=== PATIENT | female | born 1955 | race Caucasian/White ===

== ENCOUNTER 2020-07-17 16:08 | Emergency (ER) | payer OTHER ==
[~2020-07-17] VITALS: Ht 157.5 cm; Wt 83.9 kg
[2020-07-17 19:10] VITALS: BP 110/65
[2020-07-17] MEDS ORDERED: LIDOCAINE 1% HCL (LOCAL ANESTH.) INJ 20ML MDV ID ONE (19:45)
[2020-07-17] MEDS ORDERED: NEOMYCIN-BACITRACIN-POLYM UNITDOSE PKG TOP OINT TOP ONE (19:45)
== END 2020-07-17 20:44 | disposition home or self-care (01) ==
LOC: ER 16:08
DX: S16.1XXA Strain of muscle, fascia and tendon at neck level, initial encounter (principal); S00.01XA Abrasion of scalp, initial encounter; E11.9 Type 2 diabetes mellitus without complications; I10 Essential (primary) hypertension; Z88.0 Allergy status to penicillin; V43.52XA Car driver injured in collision with other type car in traffic accident, initial encounter; Y93.89 Activity, other specified; Y92.488 Other paved roadways as the place of occurrence of the external cause; Y99.8 Other external cause status
CPT/HCPCS: 70450; 82962

== ENCOUNTER 2021-03-24 18:23 | Emergency (ER) | payer OTHER ==
[~2021-03-24] VITALS: Ht 157.5 cm; Wt 104.3 kg
[2021-03-24 18:58] VITALS: BP 170/71
[2021-03-24] MEDS ORDERED: KETOROLAC TROMETH 60MG/2ML VIAL ONE (23:22)
[2021-03-25] MEDS ORDERED: KETOROLAC TROMETH 60MG/2ML VIAL IM ONE
[2021-03-25 01:10] LABS: Urine Bacteria NONE SEEN /hpf (None Seen); Urine Blood 1+ /uL (Negative); Urine Mucus FEW (None Seen); Urine Specific Gravity 1.017 (1.001-1.035); Urine WBC 553 /hpf (0 - 5); Urine WBC Clumps PRESENT /hpf (None Seen)
== END 2021-03-25 01:02 | disposition home or self-care (01) ==
LOC: ER 18:24
DX: N39.0 Urinary tract infection, site not specified (principal); R80.9 Proteinuria, unspecified; R81 Glycosuria; E66.9 Obesity, unspecified; E11.9 Type 2 diabetes mellitus without complications; I10 Essential (primary) hypertension; E78.5 Hyperlipidemia, unspecified; Z88.0 Allergy status to penicillin; Z68.41 Body mass index [BMI] 40.0-44.9, adult
CPT/HCPCS: 36415; 72100; 81001; 84484; 96372; 99284; J1885

== ENCOUNTER 2021-07-17 15:03 | Emergency (ER) | payer OTHER ==
[~2021-07-17] VITALS: Ht 157.5 cm; Wt 81.6 kg
[2021-07-17 15:59] LABS: Basophils # (auto) 0.1 10 ^3/uL (0-0.2); Eosinophils # (auto) 0.3 10 ^3/uL (0-0.8); Eosinophils % (auto) 2.9 % (0.0-7.0); Hematocrit 41.4 % (36.0-46.0); Hemoglobin 14.1 g/dL (12.2-16.2); Lymphocytes % (auto) 29.6 % (10.0-50.0); Mean Corpuscular Hemoglobin 30.3 pg (28.0-32.0); Mean Corpuscular Hgb Conc. 34.1 g/dL (32.0-36.0); Mean Corpuscular Volume 88.8 fL (80.0-100.0); Monocytes # (auto) 0.7 10 ^3/uL (0-1.3); Neutrophils % (auto) 59.5 % (37.0-80.0); Nucleated Red Blood Cells % 0.1 %; Red Blood Cells 4.66 10^6/uL (4.0-5.20); Red Cell Distribution Width 12.6 % (11.8-14.3); White Blood Cell 10.1 10^3/uL (4.4-10.8)
[2021-07-17 16:14] LABS: Albumin 3.1 g/dL (3.4-5.0); BUN/Creatinine Ratio 23.8; Calcium 9.1 mg/dL (8.5-10.1); Potassium 4.2 mmol/L (3.5-5.1)
[2021-07-17 16:17] LABS: Bilirubin, Total 0.5 mg/dL (0.2-1.0); Total Protein 7.3 g/dL (6.4-8.2)
[2021-07-17] MEDS ORDERED: SODIUM CHLORIDE 0.9% 1,000 ML IV ONE (16:30)
[2021-07-17 17:07] LABS: Magnesium 2.1 mg/dL (1.6-2.6)
[2021-07-17 19:02] LABS: Urine Bacteria FEW /hpf (None Seen); Urine Blood Negative /uL (Negative); Urine Specific Gravity 1.017 (1.001-1.035); Urine WBC 1 /hpf (0 - 5)
[2021-07-17] MEDS ORDERED: NITR-87 PO (20:21)
[2021-07-17 21:05] VITALS: BP 167/75
[2021-07-17] MEDS ORDERED: NITR-52 PO (21:10)
[2021-07-17] MEDS ORDERED: IBUP800T27 PO (21:10)
== END 2021-07-17 21:10 | disposition home or self-care (01) ==
LOC: ER 15:10
DX: E11.65 Type 2 diabetes mellitus with hyperglycemia (principal); I10 Essential (primary) hypertension; E44.1 Mild protein-calorie malnutrition; R16.0 Hepatomegaly, not elsewhere classified; K42.9 Umbilical hernia without obstruction or gangrene; Z68.32 Body mass index [BMI] 32.0-32.9, adult
CPT/HCPCS: 36415; 71046; 74176; 80053; 81001; 83690; 83735; 84443; 84484; 85025; 93005; 96360; 96361; 99285; J7030